=== PATIENT | female | born 1950 | race Asian ===

== ENCOUNTER 2021-10-14 09:24 | Outpatient (CLI) | payer MEDICARE, OTHER ==
--- NOTE | 2021-10-21 09:36 | Mammography Report ---
BILATERAL DIGITAL SCREENING MAMMOGRAM 3D/2D: 10/14/2021 CLINICAL: Routine screening. Additional films were requested but not obtained. The tissue of both breasts is heterogeneously dens e. This may lower the sensitivity of mammography. There is a focal asymmetry in the right breast at 1 o'clock posterior depth. No other significant masses, calcifications, or other findings are seen in either breast. IMPRESSION: INCOMPLETE: NEED PRIOR STUDIES FOR COMPARISON The focal asymmetry in the right breast is indeterminate. Additional views with possible ultrasound are recommended. This exam was interpreted at Station ID: [id number]. NOTE: For mammograms, a report in lay terms will be sent to the patient. Approximately 15% of breast malignancies will not be visualized mammographically. In the management of a palpable breast mass, a negative mammogram must not discourage biopsy of a clinically suspicious lesion. Electronically Signed By: Daren [email or web address]:10/21/2021 08:31:06 ACR BI-RADS Category 0 Need prior studies for comparison [id number] PARENCHYMAL PATTERN: (D) - The breast(s) demonstrate(s) heterogeneously dense fibroglandular parliliay tylor. BI-RADS CATEGORY: (0) - 0 Mammo and [place] [id number] Immediate follow-up LATERALITY: (R)
== END 2021-10-14 09:25 | disposition home or self-care (01) ==
LOC: DI.N 09:24
DX: Z12.31 Encounter for screening mammogram for malignant neoplasm of breast (principal); R92.8 Other abnormal and inconclusive findings on diagnostic imaging of breast